=== PATIENT | female | born 1965 | race Caucasian/White ===

== ENCOUNTER 2016-09-24 12:11 | Emergency (ER) | payer OTHER ==
--- NOTE | 2016-09-24 13:11 | ED NURSING NOTES ---
Clinical Report - Nurses [facility] [address] [place] [address] 09/24/2016 12:15 Patient: DASHAWN RUBIO TRIAGE Triage time 12:Sep 24 2016. Chief Complaint: COUGH and (pt reports 2 weeks of a "sinus bronchial thing" pt seen at [facility] last week, rx'd amoxicillin, "I lost the script"). Alert. No acute distress. SEPSIS SCREEN: Sepsis Screen: negative. Negative (no infection suspected/documented). --12:39 Radha Lr R.N. 12:30 09/24/16. BP: 151/80. HR: 82. RR: 17. O2 saturation: 100%. Temp: 98.2 F. Pain level now: 0/10. --12:39 Radha Lr R.N. Weight: 48 kg stated. Height/Length: 63 inches Per Patient. BMI: 18.7. --12:38 Radha Lr R.N. Medications Zantac Oral. --12:33 Radha Lr R.N. Ninfa. --12:33 Radha Lr R.N. Claritin Oral. Ventolin HFA Inhalation. --12:33 Radha Lr R.N. Medication/allergy information source: the patient. --12:39 Radha Lr R.N. Allergies Bactrim. --12:33 Radha Lr R.N. History Arrived by private vehicle. Historian: patient. Onset. (2 weeks). 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 Seen within the last 30 days at another facility; seen for similar symptoms; labs done- other tests. (strep negative). PAST MEDICAL HX: No known contact with a sick individual. Immunizations: status is unknown. Last normal menstrual period- 1 months ago. SOCIAL HX: Heavy tobacco smoker (cigarette)- 1 pack per day. Occasional alcohol use; consumes liquor. History of occasional drug use: marijuana. No infectious disease exposure. ABUSE ASSESSMENT: No report of abuse. SELF HARM ASSESSMENT: A self harm assessment was performed. The patient answered "no" to the question "Have you recently felt down, depressed, or hopeless?", "Have you noticed less interest or pleasure in doing things?", "Do you have thoughts of harming or killing yourself?", "Are you here because you tried to hurt yourself?", "Have you ever tried to hurt yourself before today?", "Have you recently had thoughts about harming or killing others?" and "Do you have any dangerous items in your possession?". FALL RISK ASSESSMENT: Fall risk assessment completed. No fall risk identified. NUTRITIONAL RISK ASSESSMENT: The nutritional risk assessment revealed no deficiencies. FUNCTIONAL ASSESSMENT: Functional assessment: no impairments noted. LEARNING NEEDS ASSESSMENT: The learning needs assessment revealed no barriers. SKIN INTEGRITY ASSESSMENT: Skin integrity risk assessment completed. No skin integrity risk identified. --12:39 Radha Lr R.N. PROBLEMS: HPV. Hypothyroidism. Gastroesophageal Reflux. --12:35 PageRadha Hanson R.N. ADDITIONAL SURGERIES: Abortions . Labia surgery. --12:35 PageRadha Hanson R.N. Interventions ID and allergy band on patient. --12:39 PageRadha Hanson R.N. PHYSICAL ASSESSMENT Ambulatory to room. Patient gowned. GENERAL / NEURO / PSYCH: Alert. Oriented X 4. Appears in no acute distress. HEENT: Pupils equal, round and reactive to light. Mucous membranes are pink. RESPIRATORY: Respirations not labored. CVS: Capillary refill less than 2 seconds. SKIN: Skin is warm and dry. Normal skin turgor. --12:39 PageRadha Hanson R.N. NURSING PROGRESS NOTES Patient identifiers checked. Call light placed in reach. Side rails up x 1. Bed placed in lowest position. Brakes of bed on. Patient ready for evaluation- chart flagged. --12:39 Radha Lr R.N. DISPOSITION / DISCHARGE Departure time: 1319 PM. Condition at departure: stable. The goals identified in the patient's plan of care were met. No learning barriers present. Discharge instructions provided and reviewed with the patient. Reviewed warnings. Reviewed medication(s) side effects, precautions, dosing and course information. No prescription given to the patient. The patient was discharged by the physician. She was discharged home and unaccompanied at time of discharge. She left the Emergency Department ambulatory and via private vehicle. Patient driving. FALL RISK ASSESSMENT: Fall risk assessment completed. No fall risk identified. KELSY COMA SCORE: Kelsy Coma Scale: 15- eyes open spontaneously (4); best verbal response- oriented x 4 (5); best motor response- obeys commands (6). --13:20 Willa Boo R.N. 13:18 09/24/16. BP: 151/80 (regular adult cuff) taken on the left arm, via an automated monitor, while sitting. HR: 78. RR: 15. O2 saturation: 98% on room air. Temp: 98.2 F. Pain level now: 0/10. --13:20 Willa Boo R.N. Locked/Released at 09/24/2016 13:20 by Willa Boo R.N.
--- NOTE | 2016-09-24 13:11 | ED CLINICAL REPORT ---
Clinical Report - Physicians/Mid Levels [facility] [address] [place] [address] 09/24/2016 12:15 Patient: DASHAWN RUBIO Time Seen: 1230. Arrived- By private vehicle. Historian- patient. HISTORY OF PRESENT ILLNESS Chief Complaint: COUGH and SINUS PAIN. left. This started past 2 weeks and is still present (unchanged). It was gradual in onset and has been waxing/waning but is not gone now. The illness is described as moderate. The patient has had a cough, sinus pressure and a nasal discharge. No difficulty breathing or chest pain. Additional history - No known contact with a sick individual. No recent travel. Similar symptoms previously: None. Recent medical care: The patient was seen recently in the emergency department (states she was given a prescription for amox however has not filled it and lost the prescription.). REVIEW OF SYSTEMS All systems otherwise negative, except as recorded above. PAST HISTORY See nurses notes. SOCIAL HISTORY Smoker- current status unknown. No alcohol use or drug use. Is a local resident. ADDITIONAL NOTES The nursing notes have been reviewed. PHYSICAL EXAM Vital Signs: 09/24/2016 12:30 BP: 151/80. HR: 82. RR: 17. O2 saturation: 100%. Temp: 98.2 F. Pain level now: 0/10. Oxygen saturation normal. Appearance: Alert. No acute distress. (non-toxic). Eyes: Pupils equal, round and reactive to light. Eyes normal inspection. ENT: Ears normal. Nose normal. Pharynx normal. Uvula midline. (left maxillary sinus tenderness. no signs of pots puffy tumor.). Neck: Normal inspection. Neck supple. No meningeal signs. CVS: Normal heart rate and rhythm. Heart sounds normal. Pulses normal. Respiratory: No respiratory distress. Breath sounds normal. No rales, rhonchi, wheezes or stridor. Abdomen: Soft and nontender. No organomegaly. Skin: Skin warm and dry. Normal skin color. No rash. Normal skin turgor. PROGRESS AND PROCEDURES Course of Care: The patient is a pleasant 50-year-old female presenting for evaluation of left-sided sinus tenderness as well as upper respiratory symptoms. Patient is nontoxic and in no acute distress. Because of the patient's ongoing symptoms for the past 2 weeks feels antibiotics is an appropriate option at this time. Had a discussion with the patient in regards to therisks and benefits of starting antibiotic therapy. Patient is agreeable to treatment plan. 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 Lungs are clear. Do not fill patient is septic at this time. Nonfocal further workup is needed given the patient will be on antibiotics. Did have a discussion with the patient in regards to her workup here in emergency department: Diagnosis, FOLLOW-UP, AND RETURN PRECAUTIONS. ALL QUESTIONS HAVE BEEN ANSWERED. THE PATIENT EXPRESSED UNDERSTANDING OF THESE INSTRUCTIONS AND WAS AGREEABLE TO THEM. PATIENT IS A STABLE OUTPATIENT CANDIDATE. DO NOT FILL PATIENT IS ADMITTED TO THE HOSPITAL OR REQUIRE FURTHER EMERGENCY WORKUP/EVALUATION. Disposition: Discharged. Condition: good. CLINICAL IMPRESSION 09/24/2016 12:30 BP: 151/80. HR: 82. RR: 17. O2 saturation: 100%. Temp: 98.2 F. Pain level now: 0/10. Hypertensive. Oxygen saturation normal. Essential hypertension. Acute maxillary sinusitis (left). INSTRUCTIONS Warnings: GENERAL WARNINGS: Return or contact your physician immediately if your condition worsens or changes unexpectedly, if not improving as expected, or if other problems arise. Specifically return if pain, vomiting, bleeding, breathing difficulty or fever. Your Current Medications: CONTINUE TAKING THE FOLLOWING MEDICATIONS: Ninfa*. Claritin Oral. Ventolin HFA Inhalation. Zantac Oral. Prescription Medications: Amoxicillin 875 mg tablets: take 1 orally every 12 hours for 10 days. No refills. Follow-up: Return to the emergency department as needed. Follow up with your doctor in five days. Reason for referral: recheck today's concerns. Summary of care provided to patient via paper. Screening today revealed the patient's blood pressure to be in the normal range. The patient should follow up with a primary care provider for blood pressure management. Understanding of the discharge instructions verbalized by patient. Follow-up with: Chad Velazquez MD, [facility], , [facility], [address] [place] [address] Follow up. Reason for referral: contact to schedule an appointment for follow up if you do not have a primary care doctor. Summary of care provided to patient via paper. (Electronically signed by Armaan Lynn Dr. 09/25/2016 23:14)
--- NOTE | 2016-09-24 13:11 | ED CLINICAL REPORT ---
Clinical Report - Physicians/Mid Levels [facility] [address] [place] [address] 09/24/2016 12:15 Patient: DASHAWN RUBIO Time Seen: 1230. Arrived- By private vehicle. Historian- patient. HISTORY OF PRESENT ILLNESS Chief Complaint: COUGH and SINUS PAIN. left. This started past 2 weeks and is still present (unchanged). It was gradual in onset and has been waxing/waning but is not gone now. The illness is described as moderate. The patient has had a cough, sinus pressure and a nasal discharge. No difficulty breathing or chest pain. Additional history - No known contact with a sick individual. No recent travel. Similar symptoms previously: None. Recent medical care: The patient was seen recently in the emergency department (states she was given a prescription for amox however has not filled it and lost the prescription.). REVIEW OF SYSTEMS All systems otherwise negative, except as recorded above. PAST HISTORY See nurses notes. SOCIAL HISTORY Smoker- current status unknown. No alcohol use or drug use. Is a local resident. ADDITIONAL NOTES The nursing notes have been reviewed. PHYSICAL EXAM Vital Signs: 09/24/2016 12:30 BP: 151/80. HR: 82. RR: 17. O2 saturation: 100%. Temp: 98.2 F. Pain level now: 0/10. Oxygen saturation normal. Appearance: Alert. No acute distress. (non-toxic). Eyes: Pupils equal, round and reactive to light. Eyes normal inspection. ENT: Ears normal. Nose normal. Pharynx normal. Uvula midline. (left maxillary sinus tenderness. no signs of pots puffy tumor.). Neck: Normal inspection. Neck supple. No meningeal signs. CVS: Normal heart rate and rhythm. Heart sounds normal. Pulses normal. Respiratory: No respiratory distress. Breath sounds normal. No rales, rhonchi, wheezes or stridor. Abdomen: Soft and nontender. No organomegaly. Skin: Skin warm and dry. Normal skin color. No rash. Normal skin turgor. PROGRESS AND PROCEDURES Course of Care: The patient is a pleasant 50-year-old female presenting for evaluation of left-sided sinus tenderness as well as upper respiratory symptoms. Patient is nontoxic and in no acute distress. Because of the patient's ongoing symptoms for the past 2 weeks feels antibiotics is an appropriate option at this time. Had a discussion with the patient in regards to therisks and benefits of starting antibiotic therapy. Patient is agreeable to treatment plan. Because the patient appears nontoxic and is no acute distress and is afebrile at this time, do not feel chest x-ray will record changer at this time. Lungs are clear. Do not fill patient is septic at this time. Nonfocal further workup is needed given the patient will be on antibiotics. Did have a discussion with the patient in regards to her workup here in emergency department: Diagnosis, FOLLOW-UP, AND RETURN PRECAUTIONS. ALL QUESTIONS HAVE BEEN ANSWERED. THE PATIENT EXPRESSED UNDERSTANDING OF THESE INSTRUCTIONS AND WAS AGREEABLE TO THEM. PATIENT IS A STABLE OUTPATIENT CANDIDATE. DO NOT FILL PATIENT IS ADMITTED TO THE HOSPITAL OR REQUIRE FURTHER EMERGENCY WORKUP/EVALUATION. Disposition: Discharged. Condition: good. CLINICAL IMPRESSION 09/24/2016 12:30 BP: 151/80. HR: 82. RR: 17. O2 saturation: 100%. Temp: 98.2 F. Pain level now: 0/10. Hypertensive. Oxygen saturation normal. Essential hypertension. Acute maxillary sinusitis (left). INSTRUCTIONS Warnings: GENERAL WARNINGS: Return or contact your physician immediately if your condition worsens or changes unexpectedly, if not improving as expected, or if other problems arise. Specifically return if pain, vomiting, bleeding, breathing difficulty or fever. Your Current Medications: CONTINUE TAKING THE FOLLOWING MEDICATIONS: Ninfa*. Claritin Oral. Ventolin HFA Inhalation. Zantac Oral. Prescription Medications: Amoxicillin 875 mg tablets: take 1 orally every 12 hours for 10 days. No refills. Follow-up: Return to the emergency department as needed. Follow up with your doctor in five days. Reason for referral: recheck today's concerns. Summary of care provided to patient via paper. Screening today revealed the patient's blood pressure to be in the normal range. The patient should follow up with a primary care provider for blood pressure management. Understanding of the discharge instructions verbalized by patient. Follow-up with: Chad Velazquez MD, [facility], , [facility], [address] [place] [address] Follow up. Reason for referral: contact to schedule an appointment for follow up if you do not have a primary care doctor. Summary of care provided to patient via paper. (Electronically signed by Armaan Lynn Dr. 09/25/2016 23:14)
--- NOTE | 2016-09-24 13:11 | ED NURSING NOTES ---
Clinical Report - Nurses [facility] [address] [place] [address] 09/24/2016 12:15 Patient: DASHAWN RUBIO TRIAGE Triage time 12:Sep 24 2016. Chief Complaint: COUGH and (pt reports 2 weeks of a "sinus bronchial thing" pt seen at [facility] last week, rx'd amoxicillin, "I lost the script"). Alert. No acute distress. SEPSIS SCREEN: Sepsis Screen: negative. Negative (no infection suspected/documented). --12:39 Radha Lr R.N. 12:30 09/24/16. BP: 151/80. HR: 82. RR: 17. O2 saturation: 100%. Temp: 98.2 F. Pain level now: 0/10. --12:39 Radha Lr R.N. Weight: 48 kg stated. Height/Length: 63 inches Per Patient. BMI: 18.7. --12:38 Radha Lr R.N. Medications Zantac Oral. --12:33 Radha Lr R.N. Ninfa. --12:33 Radha Lr R.N. Claritin Oral. Ventolin HFA Inhalation. --12:33 Radha Lr R.N. Medication/allergy information source: the patient. --12:39 Radha Lr R.N. Allergies Bactrim. --12:33 Radha Lr R.N. History Arrived by private vehicle. Historian: patient. Onset. (2 weeks). 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 Seen within the last 30 days at another facility; seen for similar symptoms; labs done- other tests. (strep negative). PAST MEDICAL HX: No known contact with a sick individual. Immunizations: status is unknown. Last normal menstrual period- 1 months ago. SOCIAL HX: Heavy tobacco smoker (cigarette)- 1 pack per day. Occasional alcohol use; consumes liquor. History of occasional drug use: marijuana. No infectious disease exposure. ABUSE ASSESSMENT: No report of abuse. SELF HARM ASSESSMENT: A self harm assessment was performed. The patient answered "no" to the question "Have you recently felt down, depressed, or hopeless?", "Have you noticed less interest or pleasure in doing things?", "Do you have thoughts of harming or killing yourself?", "Are you here because you tried to hurt yourself?", "Have you ever tried to hurt yourself before today?", "Have you recently had thoughts about harming or killing others?" and "Do you have any dangerous items in your possession?". FALL RISK ASSESSMENT: Fall risk assessment completed. No fall risk identified. NUTRITIONAL RISK ASSESSMENT: The nutritional risk assessment revealed no deficiencies. FUNCTIONAL ASSESSMENT: Functional assessment: no impairments noted. LEARNING NEEDS ASSESSMENT: The learning needs assessment revealed no barriers. SKIN INTEGRITY ASSESSMENT: Skin integrity risk assessment completed. No skin integrity risk identified. --12:39 Radha Lr R.N. PROBLEMS: HPV. Hypothyroidism. Gastroesophageal Reflux. --12:35 PageRadha Hanson R.N. ADDITIONAL SURGERIES: Abortions . Labia surgery. --12:35 PageRadha Hanson R.N. Interventions ID and allergy band on patient. --12:39 PageRadha Hanson R.N. PHYSICAL ASSESSMENT Ambulatory to room. Patient gowned. GENERAL / NEURO / PSYCH: Alert. Oriented X 4. Appears in no acute distress. HEENT: Pupils equal, round and reactive to light. Mucous membranes are pink. RESPIRATORY: Respirations not labored. CVS: Capillary refill less than 2 seconds. SKIN: Skin is warm and dry. Normal skin turgor. --12:39 PageRadha Hanson R.N. NURSING PROGRESS NOTES Patient identifiers checked. Call light placed in reach. Side rails up x 1. Bed placed in lowest position. Brakes of bed on. Patient ready for evaluation- chart flagged. --12:39 Radha Lr R.N. DISPOSITION / DISCHARGE Departure time: 1319 PM. Condition at departure: stable. The goals identified in the patient's plan of care were met. No learning barriers present. Discharge instructions provided and reviewed with the patient. Reviewed warnings. Reviewed medication(s) side effects, precautions, dosing and course information. No prescription given to the patient. The patient was discharged by the physician. She was discharged home and unaccompanied at time of discharge. She left the Emergency Department ambulatory and via private vehicle. Patient driving. FALL RISK ASSESSMENT: Fall risk assessment completed. No fall risk identified. KELSY COMA SCORE: Kelsy Coma Scale: 15- eyes open spontaneously (4); best verbal response- oriented x 4 (5); best motor response- obeys commands (6). --13:20 Willa Boo R.N. 13:18 09/24/16. BP: 151/80 (regular adult cuff) taken on the left arm, via an automated monitor, while sitting. HR: 78. RR: 15. O2 saturation: 98% on room air. Temp: 98.2 F. Pain level now: 0/10. --13:20 Willa Boo R.N. Locked/Released at 09/24/2016 13:20 by Willa Boo R.N.
--- NOTE | 2016-09-25 23:14 | ED DISCHARGE INSTRUCTIONS ---
Patient: DASHAWN RUBIO General Instructions [facility] VisitID: [id number] [address] [place] [address] 50y, F Registration Date/Time: 09/24/2016 09/24/2016 12:30 BP: 151/80. HR: 82. RR: 17. O2 saturation: 100%. Temp: 98.2 F. Pain level now: 0/10. Hypertensive. Oxygen saturation normal. Essential hypertension. Acute maxillary sinusitis (left). INSTRUCTIONS Warnings: GENERAL WARNINGS: Return or contact your physician immediately if your condition worsens or changes unexpectedly, if not improving as expected, or if other problems arise. Specifically return if pain, vomiting, bleeding, breathing difficulty or fever. Your Current Medications: CONTINUE TAKING THE FOLLOWING MEDICATIONS: Ninfa*. Claritin Oral. Ventolin HFA Inhalation. Zantac Oral. Prescription Medications: Amoxicillin 875 mg tablets: take 1 orally every 12 hours for 10 days. No refills. Follow-up: Return to the emergency department as needed. Follow up with your doctor in five days. Reason for referral: recheck today's concerns. Summary of care provided to patient via paper. Screening today revealed the patient's blood pressure to be in the normal range. The patient should follow up with a primary care provider for blood pressure management. Understanding of the discharge instructions verbalized by patient. Follow-up with: Chad Velazquez MD, [facility], , [facility], [address] [place] [address] Follow up. Reason for referral: contact to schedule an appointment for follow up if you do not have a primary care doctor. Summary of care provided to patient via paper. ADDITIONAL INFORMATION High Blood Pressure -- To Be Confirmed [No Tx] Your blood pressure was higher today than normal. Sometimes anxiety or pain can cause a temporary rise in blood pressure that later returns to normal. If your blood pressure is high on one measurement, this does not mean that you have hypertension (a chronic illness). However, you must have your blood pressure measured again within the next few days to find out if its still high. A normal blood pressure is 120/80 or less. The first (top) number is the "systolic" pressure. The second (bottom) number is the "diastolic" pressure. Hypertension exists when either the top number is 140 or higher, OR the bottom number is 90 or higher on repeated measurements. Blood pressure in the range of 120-140 (systolic) or 80-89 (diastolic) is considered "pre-hypertension". This means your are at risk for getting hypertension. You should have regular blood pressure checks to be sure your blood pressure is not rising. Home Care: Measure your blood pressure on 3 different days and write down the results. This can be done at your doctor's office or this facility. Some pharmacies and grocery stores offer automated blood pressure machines for your use. Follow Up: If your blood pressure is "high" (over 120/80) on 2 out of 3 days, you will need to follow up with your doctor for further evaluation and treatment. DO NOT PUT THIS OFF! Untreated high blood pressure increases the risk for heart attack, also known as acute myocardial infarction, or AMI, and stroke. It is a treatable condition. Get Prompt Medical Attention if any of the following occur: Chest pain or shortness of breath Severe headache Throbbing or rushing sound in the ears Nosebleed Sudden severe abdominal pain Extreme drowsiness, confusion or fainting Dizziness or vertigo (dizziness with spinning sensation) Weakness of an arm or leg or one side of the face Difficulty with speech or vision Amoxicillin Trihydrate Oral tablet What is this medicine? AMOXICILLIN (a mox i DARRYL in) is a penicillin antibiotic. It is used to treat certain kinds of bacterial infections. It will not work for colds, flu, or other viral infections. How should I use this medicine? Take this medicine by mouth with a glass of water. Follow the directions on your prescription label. You may take this medicine with food or on an empty stomach. Take your medicine at regular intervals. Do not take your medicine more often than directed. Take all of your medicine as directed even if you think your are better. Do not skip doses or stop your medicine early. Talk to your human resources analyst regarding the use of this medicine in children. While this drug may be prescribed for selected conditions, precautions do apply. What side effects may I notice from receiving this medicine? Side effects that you should report to your doctor or health skin care consultant as soon as possible: allergic reactions like skin rash, itching or hives, swelling of the face, lips, or tongue breathing problems dark urine redness, blistering, peeling or loosening of the skin, including inside the mouth seizures severe or watery diarrhea trouble passing urine or change in the amount of urine unusual bleeding or bruising unusually weak or tired yellowing of the eyes or skin Side effects that usually do not require medical attention (report to your doctor or health skin care consultant if they continue or are bothersome): dizziness headache stomach upset trouble sleeping What may interact with this medicine? amiloride control pills chloramphenicol macrolides probenecid sulfonamides tetracyclines What if I miss a dose? If you miss a dose, take it as soon as you can. If it is almost time for your next dose, take only that dose. Do not take double or extra doses. Where should I keep my medicine? Keep out of the reach of children. Store between 68 and 77 degrees F (20 and 25 degrees C). Keep bottle closed tightly. Throw away any unused medicine after the expiration date. What should I tell my health care provider before I take this medicine? They need to know if you have any of these conditions: asthma kidney disease an unusual or allergic reaction to amoxicillin, other penicillins, cephalosporin antibiotics, other medicines, foods, dyes, or preservatives or trying to get breast-feeding What should I watch for while using this medicine? Tell your doctor or health skin care consultant if your symptoms do not improve in 2 or 3 days. Take all of the doses of your medicine as directed. Do not skip doses or stop your medicine early. If you are diabetic, you may get a false positive result for sugar in your urine with certain brands of urine tests. Check with your doctor. Do not treat diarrhea with [id number] products. Contact your doctor if you have diarrhea that lasts more than 2 days or if the diarrhea is severe and watery. You have been given the following additional information: Hypertension, To Be Confirmed Amoxicillin Trihydrate Oral tablet (Electronically signed by Armaan Lynn Dr. 09/25/2016 23:14)
--- NOTE | 2016-09-25 23:14 | ED DISCHARGE INSTRUCTIONS ---
Patient: DASHAWN RUBIO General Instructions [facility] VisitID: [id number] [address] [place] [address] 50y, F Registration Date/Time: 09/24/2016 09/24/2016 12:30 BP: 151/80. HR: 82. RR: 17. O2 saturation: 100%. Temp: 98.2 F. Pain level now: 0/10. Hypertensive. Oxygen saturation normal. Essential hypertension. Acute maxillary sinusitis (left). INSTRUCTIONS Warnings: GENERAL WARNINGS: Return or contact your physician immediately if your condition worsens or changes unexpectedly, if not improving as expected, or if other problems arise. Specifically return if pain, vomiting, bleeding, breathing difficulty or fever. Your Current Medications: CONTINUE TAKING THE FOLLOWING MEDICATIONS: Ninfa*. Claritin Oral. Ventolin HFA Inhalation. Zantac Oral. Prescription Medications: Amoxicillin 875 mg tablets: take 1 orally every 12 hours for 10 days. No refills. Follow-up: Return to the emergency department as needed. Follow up with your doctor in five days. Reason for referral: recheck today's concerns. Summary of care provided to patient via paper. Screening today revealed the patient's blood pressure to be in the normal range. The patient should follow up with a primary care provider for blood pressure management. Understanding of the discharge instructions verbalized by patient. Follow-up with: Chad Velazquez MD, [facility], , [facility], [address] [place] [address] Follow up. Reason for referral: contact to schedule an appointment for follow up if you do not have a primary care doctor. Summary of care provided to patient via paper. ADDITIONAL INFORMATION High Blood Pressure -- To Be Confirmed [No Tx] Your blood pressure was higher today than normal. Sometimes anxiety or pain can cause a temporary rise in blood pressure that later returns to normal. If your blood pressure is high on one measurement, this does not mean that you have hypertension (a chronic illness). However, you must have your blood pressure measured again within the next few days to find out if its still high. A normal blood pressure is 120/80 or less. The first (top) number is the "systolic" pressure. The second (bottom) number is the "diastolic" pressure. Hypertension exists when either the top number is 140 or higher, OR the bottom number is 90 or higher on repeated measurements. Blood pressure in the range of 120-140 (systolic) or 80-89 (diastolic) is considered "pre-hypertension". This means your are at risk for getting hypertension. You should have regular blood pressure checks to be sure your blood pressure is not rising. Home Care: Measure your blood pressure on 3 different days and write down the results. This can be done at your doctor's office or this facility. Some pharmacies and grocery stores offer automated blood pressure machines for your use. Follow Up: If your blood pressure is "high" (over 120/80) on 2 out of 3 days, you will need to follow up with your doctor for further evaluation and treatment. DO NOT PUT THIS OFF! Untreated high blood pressure increases the risk for heart attack, also known as acute myocardial infarction, or AMI, and stroke. It is a treatable condition. Get Prompt Medical Attention if any of the following occur: Chest pain or shortness of breath Severe headache Throbbing or rushing sound in the ears Nosebleed Sudden severe abdominal pain Extreme drowsiness, confusion or fainting Dizziness or vertigo (dizziness with spinning sensation) Weakness of an arm or leg or one side of the face Difficulty with speech or vision Amoxicillin Trihydrate Oral tablet What is this medicine? AMOXICILLIN (a mox i DARRYL in) is a penicillin antibiotic. It is used to treat certain kinds of bacterial infections. It will not work for colds, flu, or other viral infections. How should I use this medicine? Take this medicine by mouth with a glass of water. Follow the directions on your prescription label. You may take this medicine with food or on an empty stomach. Take your medicine at regular intervals. Do not take your medicine more often than directed. Take all of your medicine as directed even if you think your are better. Do not skip doses or stop your medicine early. Talk to your physician industrial regarding the use of this medicine in children. While this drug may be prescribed for selected conditions, precautions do apply. What side effects may I notice from receiving this medicine? Side effects that you should report to your doctor or health pulmonary care nurse as soon as possible: allergic reactions like skin rash, itching or hives, swelling of the face, lips, or tongue breathing problems dark urine redness, blistering, peeling or loosening of the skin, including inside the mouth seizures severe or watery diarrhea trouble passing urine or change in the amount of urine unusual bleeding or bruising unusually weak or tired yellowing of the eyes or skin Side effects that usually do not require medical attention (report to your doctor or health pulmonary care nurse if they continue or are bothersome): dizziness headache stomach upset trouble sleeping What may interact with this medicine? amiloride control pills chloramphenicol macrolides probenecid sulfonamides tetracyclines What if I miss a dose? If you miss a dose, take it as soon as you can. If it is almost time for your next dose, take only that dose. Do not take double or extra doses. Where should I keep my medicine? Keep out of the reach of children. Store between 68 and 77 degrees F (20 and 25 degrees C). Keep bottle closed tightly. Throw away any unused medicine after the expiration date. What should I tell my health care provider before I take this medicine? They need to know if you have any of these conditions: asthma kidney disease an unusual or allergic reaction to amoxicillin, other penicillins, cephalosporin antibiotics, other medicines, foods, dyes, or preservatives or trying to get breast-feeding What should I watch for while using this medicine? Tell your doctor or health pulmonary care nurse if your symptoms do not improve in 2 or 3 days. Take all of the doses of your medicine as directed. Do not skip doses or stop your medicine early. If you are diabetic, you may get a false positive result for sugar in your urine with certain brands of urine tests. Check with your doctor. Do not treat diarrhea with [id number] products. Contact your doctor if you have diarrhea that lasts more than 2 days or if the diarrhea is severe and watery. You have been given the following additional information: Hypertension, To Be Confirmed Amoxicillin Trihydrate Oral tablet (Electronically signed by Armaan Lynn Dr. 09/25/2016 23:14)
--- NOTE | 2016-09-25 23:14 | ED MED RECONCILIATION SUMMARY ---
Patient: DASHAWN RUBIO Medication Reconciliation Report [facility] VisitID: [id number] [address] [place] [address] 50y, F Registration Date/Time: 09/24/2016 Weight: 48.0 kg Height/Length: 63 in. BMI: 18.8 ALLERGIES: Bactrim The patient's Home Medications are listed below: CONTINUE TAKING THE FOLLOWING MEDICATIONS: Ninfa Claritin Oral Ventolin HFA Inhalation Zantac Oral The source(s) of the original Home Medication information: patient The following Medications were given to the patient in the Emergency Department: None. The following Medications were prescribed to the patient: Amoxicillin 875 mg tablets: take 1 orally every 12 hours for 10 days. No refills. -- Armaan Lynn Dr.
--- NOTE | 2016-09-25 23:14 | ED MED RECONCILIATION SUMMARY ---
Patient: DASHAWN RUBIO Medication Reconciliation Report [facility] VisitID: [id number] [address] [place] [address] 50y, F Registration Date/Time: 09/24/2016 Weight: 48.0 kg Height/Length: 63 in. BMI: 18.8 ALLERGIES: Bactrim The patient's Home Medications are listed below: CONTINUE TAKING THE FOLLOWING MEDICATIONS: Ninfa Claritin Oral Ventolin HFA Inhalation Zantac Oral The source(s) of the original Home Medication information: patient The following Medications were given to the patient in the Emergency Department: None. The following Medications were prescribed to the patient: Amoxicillin 875 mg tablets: take 1 orally every 12 hours for 10 days. No refills. -- Armaan Lynn Dr.
--- NOTE | 2016-09-25 23:14 | ED MAR SUMMARY ---
..... Medication Administration Record [facility] [address] [place], [place] [id number] Patient: DASHAWN RUBIO Visit ID: [id number] 50y, F Weight: 48.0 kg Height/Length: 63 in BMI: 18.7 ALLERGIES: Bactrim
--- NOTE | 2016-09-25 23:14 | ED MAR SUMMARY ---
..... Medication Administration Record [facility] [address] [place], [place] [id number] Patient: DASHAWN RUBIO Visit ID: [id number] 50y, F Weight: 48.0 kg Height/Length: 63 in BMI: 18.7 ALLERGIES: Bactrim
== END 2016-09-24 13:20 | disposition home or self-care (01) ==
LOC: ED SRH 12:11
DX: J01.00 Acute maxillary sinusitis, unspecified (principal); I10 Essential (primary) hypertension; E03.9 Hypothyroidism, unspecified; K21.9 Gastro-esophageal reflux disease without esophagitis; Z79.899 Other long term (current) drug therapy; F17.210 Nicotine dependence, cigarettes, uncomplicated; Z88.1 Allergy status to other antibiotic agents